=== PATIENT | female | born 1940 | race Caucasian/White ===

== ENCOUNTER 2020-11-20 07:25 | Day surgery (SDC) | payer OTHER ==
[~2020-11-20] VITALS: Ht 162.6 cm; Wt 70.3 kg
--- NOTE | ~2020-11-20 | O ---
[facility] [place] [address] OPERATIVE REPORT Name: LAURA SOTO Room #: REG [facility]..#: [id number] Admission: 11/20/20 Attend Phys: Moi Rios MD Discharge: Date of : 44 Report #: [id number] THIS REPORT FOR: cc: Physician not on staff Physician not on staff Moi Rios MD ~ DOC #: [id number] Moi Rios MD DATE OF SERVICE: 11/20/2020 PREOPERATIVE DIAGNOSIS: Right orbital tumor. POSTOPERATIVE DIAGNOSIS: Right orbital tumor. PROCEDURE: Right orbitotomy. SURGEON: Moi Rios MD. COFOUNDER: None. ANESTHESIA: General. COMPLICATIONS: None. 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 She has three different lesions in her orbit. The lesion on the right anterior lateral orbit has been enlarging. She presents today to definitively determine if she has metastatic carcinoid in her orbits. 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 DESCRIPTION OF PROCEDURE: The patient was taken to the operating room where general anesthesia was administered, the right lateral orbit was then anesthetized with Xylocaine with epinephrine mixed with Marcaine and Wydase. The patient was subsequently prepped and draped in the usual sterile fashion. A fine tip skin marking pen was then utilized to outline an extended right upper lid crease incision into the infratemporal fossa. The incision was then made with a Randy scissor and hemostasis achieved with diligent pinpoint monopolar cautery as it was throughout the case. The dissection was carried down through the orbicularis muscle through the orbital septum until the lateral superior orbital space was identified. The mass was palpable. It had a hemorrhagic appearance, which could have been secondary to the injection. The dissection was carried out 360 degrees around the lesion trying to maintain hemostasis with monopolar cautery. The lesion was quite vascular. The lesion was excised with a stump of tissue superolaterally. It appeared to be connected to deeper [address] [address] OPERATIVE REPORT Name: LAURA SOTO Room #: REG [facility].#: [id number] Admission: 11/20/20 Attend Phys: Moi Rios MD Discharge: Date of : 44 Report #: [id number] pathology in the orbit. The specimen was passed off the field in formalin. The wound was then dried and closed in a layered closure with 6-0 plain gut sutures. The wound was then cleaned and dressed with erythromycin ointment and the patient subsequently transported to the recovery area having tolerated the procedure well with no anesthetic or operative complications being noted. Moi Rios MD WLW/KDA By: [id number] Moi Rios MD /manuel
[~2020-11-20 07:25] MED LIST: ALOE VERA PAIN454 GM TOP; BLUE GREEN ALGAE PO; BORON1 GM PO; CHLORELLA PO; CHLOROPHYLL 201 EACH PO; CINNAMON500 MG PO; COD LIVER OIL1 EACH PO; CRANBERRY500 M3 PO; CURAMED PO; CURAMIN PO; ESSIAC TONIC PO; GARLIC PARSLEY PO; GRAPESEED1 ML PO; HUPERZINE SERRAT1 GM PO; HYALURONIC ACI1 EACH PO; LEVO-T100 MCG PO; LEVOTHYROXINE100 MCG PO; LIONS MANE PO; LUTEIN20 MG PO; MEGA B PO; MILK THISTLE150 MG PO; MSM1000 MG PO; NEURO PS PO; OCTREOTIDE INJECTION; OCTREOTIDE SUBQ; OLIVE LEAF EXT250 MG PO; PAPAYA100 MG PO; PROBIOTIC1 EAC7 PO; QUERCETIN DIHYDR1 GM PO; ROYAL JELLY200 MG PO; SAFFRON176.5 MG PO; SELENIUM200 MC3 PO; UBIQUINOL100 MG PO; ULTRAM 50MG TAB50 MG PO; VINPOCETINE1 GM; VITAMIN B-121000 MC4 SUBLING; VITAMIN D350 MCG PO; VITAMIN E1000 UNI2 PO; [UNRECOGNIZED DRUG - OTHER]; [UNRECOGNIZED DRUG - OTHER]; [UNRECOGNIZED DRUG - OTHER] PO; [UNRECOGNIZED DRUG - OTHER] PO; [UNRECOGNIZED DRUG - OTHER] PO; [UNRECOGNIZED DRUG - OTHER] PO; [UNRECOGNIZED DRUG - OTHER] PO; [UNRECOGNIZED DRUG - OTHER] PO
[2020-11-20 09:30] VITALS: BP 146/78
--- NOTE | 2020-11-26 17:06 | PATH ---
[facility] [address] [place] [address] PATHOLOGY RPT PROCEDURE Name: LAURA SOTO Room #: DEP [facility] M.R.#: [id number] Admission: 11/20/20 Date of : 44 Discharge: 11/20/20 Report #: [id number] Path Case #: [id number] [facility] Accession Number: [id number] . 01 Material submitted: . eye - RIGHT LATERAL ORBIT TUMOR. Modifiers: right, lateral, ORBIT . 01 Clinical history: . ORBITOTOMY ORBITAL LESION . 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 . (IUV:baudilio; 11/26/2020) QMS 11/26/2020 1640 Local . 02 Comment: Examination shows an organoid tumor with rosettes, low nuclear to cytoplasmic ratio as well as salt and pepper chromatin. Multiple properly controlled immunohistochemical stains are performed on block A1 based on the provided history of carcinoid tumor by Dr. Rios. The tumor shows strong granular reactivity with synaptophysin, as well as chromogranin supporting neuroendocrine origin. AE1/AE3 and BerEP4 show membranous reactivity. CDX-2 shows strong nuclear reactivity within 100% of the tumor cells compatible with a gastrointestinal origin for this tumor. Ki-67 shows 10 percent mitotic activity. . Dr. Dre Hyde has seen patient portal representative slides of this case and concurs with the diagnosis. Findings of this case are conveyed to Dr. Moi Rios at approximately 9:00 a.m. on 11/26/2020. (IUV:baudilio; 11/26/2020) . 02 Electronically signed: . Vashti Pickens MD, Pathologist NPI- [id number] . 01 Gross description: . Received in formalin labeled "Laura Soto, right lateral orbit tumor" is a clemens-brown soft tissue nodule measuring 0.9 x 0.8 x 0.6 cm. The external surface is inked black. The specimen is sectioned to reveal a clemens-white fibrotic cut surface. The specimen is submitted entirely in A1. [place]22/2020[place] [facility] 11/22/2020 1521 Local . 02 [place] [address] PATHOLOGY RPT PROCEDURE Name: LAURA SOTO Room #: DEP [facility] M.R.#: [id number] Admission: 11/20/20 Date of : 44 Discharge: 11/20/20 Report #: [id number] Path Case #: [id number] Pathologist provided ICD-10: C7B.8 . 02 CPT . 326956, D51240, [id number], [id number] Specimen Comment: A courtesy copy of this report has been sent to [phone] Specimen Comment: Report sent to Performed at: [address], [place] [id number] MD Dre Hyde MD Phone: [phone] Performed at: [address] [id number] MD Vashti Pickens MD Phone: [phone]
== END 2020-11-20 11:55 | disposition home or self-care (01) ==
LOC: OR 07:25
PROVIDERS: ATTEND Ophthalmology
DX: C7B.8 Other secondary neuroendocrine tumors (principal); E11.9 Type 2 diabetes mellitus without complications; E03.9 Hypothyroidism, unspecified; Z98.890 Other specified postprocedural states; Z79.899 Other long term (current) drug therapy; Z98.41 Cataract extraction status, right eye; Z20.822 Contact with and (suspected) exposure to COVID-19; Z98.42 Cataract extraction status, left eye; Z87.442 Personal history of urinary calculi; Z85.828 Personal history of other malignant neoplasm of skin; Z90.710 Acquired absence of both cervix and uterus; Z85.05 Personal history of malignant neoplasm of liver; Z87.891 Personal history of nicotine dependence
CPT/HCPCS: 50010; 50101; 50386; 50398; 51636; 56531; 62110; 62900; 70005